=== PATIENT | female | born 1995 ===

== ENCOUNTER 2023-10-07 19:24 | Emergency (ER) | payer OTHER ==
[~2023-10-07] VITALS: Ht 154.9 cm; Wt 54.5 kg
[2023-10-07 23:39] VITALS: TEMP 99.9
[2023-10-07 23:40] VITALS: BP 109/61; PULSE 99; RESP 17
[2023-10-07 23:40] LABS: COVID AG,FIA SOURCE NASAL SWAB
[2023-10-07 23:59] LABS: INFLUENZA TYPE A NEGATIVE FOR TYPE A (NEGATIVE); INFLUENZA TYPE B NEGATIVE FOR TYPE B (NEGATIVE); SARS-COV2 (COVID) ANTIGEN,FIA Negative (Negative)
[2023-10-08] MEDS ORDERED: ACETAMINOPHEN 325 MG TABLET PO ONE
== END 2023-10-08 01:00 | disposition home or self-care (01) ==
LOC: EMS 19:35
DX: J40 Bronchitis, not specified as acute or chronic (principal); Z20.822 Contact with and (suspected) exposure to COVID-19
CPT/HCPCS: 71045; 87804; 99284